=== PATIENT | male | born 1985 | race Caucasian/White ===

== ENCOUNTER 2025-02-11 05:12 | Inpatient (IN) | payer MEDICARE, OTHER, SELFPAY ==
[2025-02-11] VITALS (8 sets, daily range): BP systolic 97–111; BP diastolic 62–73
[2025-02-11] MEDS: DUONEB 3 ML INH ×2 (02:42→07:56)
[2025-02-11] MEDS: TYLENOL SUSPENSION 650 MG PO (02:43)
[2025-02-11] MEDS: NSS 1000 IV (02:43)
[2025-02-11 02:59] LABS: Hematocrit 47.5 % (39.0-52.0); Hemoglobin 16.6 g/dL (13.0-18.0); Mean Corp Hgb Conc. 34.9 g/dL (33.0-37.0); Mean Corpuscular Volume 91.5 fL (80.0-94.0); Mean Platelet Volume 12.2 fL (7.4-10.4); Platelet Count 220 10^3/uL (130-400); Red Blood Cell Count 5.19 10^6/uL (4.70-6.10); Red Cell Dist. Width 12.5 % (11.5-14.5); White Blood Cell Count 28.9 10^3/uL (4.8-10.8)
[2025-02-11 03:11] LABS: Lactic Acid 1.5 mmol/L (0.7-2.0)
[2025-02-11 03:13] LABS: Blood Urea Nitrogen 16 mg/dl (9-20); Calcium 9.2 mg/dl (8.4-10.2); Carbon Dioxide 21 mmol/L (22-30); Chloride 107 mmol/L (98-107); Glucose 137 mg/dl (70-99); Sodium 138 mmol/L (135-145); eGFR > 60.00
[2025-02-11 03:40] LABS: Absolute Neutrophils -Man Diff 27.1 10^3/uL (1.4-6.5); Band Neutrophils 10 % (0-3); Lymphocytes 3 % (20-51); Monocytes 3 % (2-9); Normal RBC Morphology Yes; Platelets Checked Yes; Segmented Neutrophils 84 % (42-75); Total Cells Counted 100
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
[2025-02-11] MEDS: ROCEPHIN 2000 MG IV (04:27)
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
[2025-02-11] MEDS: ZITHROMAX INFUSION 250 IV (04:33)
[2025-02-11 05:12] LABS: COVID-19 Antigen Negative (Negative)
--- NOTE | 2025-02-11 05:45 | PTCARENOTE ---
Pt arrived to unit from ED, pullover assist x4 from stretcher to bed. Pt is non-verbal; mother at bedside to help answer admission questions. Call rg in reach, bed alarm in place. Plan of care reviewed with mother. VSS. Bed in lowest
position. Pt suctioned for a small amount of clear thick secretions. HOB elevated above 30 degrees.
[2025-02-11 06:45] LABS: Lactic Acid 2.3 mmol/L (0.7-2.0)
[2025-02-11] MEDS: LR 1000 IV (07:40)
[2025-02-11] MEDS: COLACE 100 MG PO ×2 (09:36→20:23)
[2025-02-11] MEDS: MUCINEX 600 MG PO ×2 (09:36→20:24)
[2025-02-11] MEDS: PROTONIX 40 MG PO (09:36)
[2025-02-11] MEDS: KEPPRA 500 MG PO ×2 (09:36→20:28)
[2025-02-11] MEDS: VIMPAT 200 MG PO ×2 (09:38→20:24)
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
--- NOTE | 2025-02-11 16:00 | CM ---
senior manager mergers [employer] acquisitions reviewed patient's chart and patient was admitted from home where he lives with his mother, patient with paraplegia and his home is fully functioning for his needs per patient's sister who was at bedside, patient has an electric w/c, 1
story, no steps and a ramp to enter. Patient is , and follows with Dr. Polk at [facility]. Patient has private caregivers. Plan home with mother when stable.
PCP: Dr Polk at [facility]
PHarmacy: [facility] In [place]
Plan; Home with mother when stable.
--- NOTE | 2025-02-11 16:35 | PTOTSP ---
Dysphagia Evaluation
Patient presents with signs concerning for at least mild-moderate oral dysphagia likely related to acute PNA and baseline factors (TBI, spinal cord injury, paraplegia). Cannot r/o pharyngeal dysphagia or aspiration bedside. Instrumental swallowing
assessment recommended. Family declined. Family in agreement to diet modifications below.
Recommend:
1. IDDSI Level 6 Soft/Bite Sized, Thin Liquids
2. Medications: crushed in puree
3. Strategies: FULL supervision/assistance, single sips/bites, slow rate, alternate sips/bites, check for pocketing, reflux precautions, oral care post meals and 3x daily
4. Dysphagia f/u to determine if/when diet advancement appropriate and continue education.
[2025-02-11] MEDS: LOVENOX 40 MG SC (17:12)
[2025-02-11] MEDS: CRESTOR 20 MG PO (17:14)
[2025-02-11] MEDS: DESYREL 100 MG PO (22:35)
[2025-02-12] MEDS: FLUSH (NSS) 1 FLUSH IV (05:18)
[2025-02-12] MEDS: ZITHROMAX INFUSION 250 IV (05:18)
[2025-02-12] MEDS: STERILE WATER FOR INJECTION 20 ML IV (05:23)
[2025-02-12] MEDS: ROCEPHIN 2000 MG IV (05:23)
[2025-02-12 07:08] LABS: Hematocrit 43.8 % (39.0-52.0); Hemoglobin 14.7 g/dL (13.0-18.0); Mean Corp Hgb Conc. 33.6 g/dL (33.0-37.0); Mean Corpuscular Hgb 31.1 pg (27.0-31.0); Mean Corpuscular Volume 92.8 fL (80.0-94.0); Mean Platelet Volume 12.3 fL (7.4-10.4); Platelet Count 212 10^3/uL (130-400); Red Blood Cell Count 4.72 10^6/uL (4.70-6.10); White Blood Cell Count 16.3 10^3/uL (4.8-10.8)
[2025-02-12 07:13] VITALS: BP 100/59
[2025-02-12 07:28] LABS: Blood Urea Nitrogen 13 mg/dl (9-20); Calcium 8.7 mg/dl (8.4-10.2); Carbon Dioxide 23 mmol/L (22-30); Chloride 111 mmol/L (98-107); Glucose 95 mg/dl (70-99); Potassium 4.3 mmol/L (3.5-5.1); Sodium 143 mmol/L (135-145); eGFR > 60.00
[2025-02-12] MEDS: MUCINEX 600 MG PO (09:39)
[2025-02-12] MEDS: KEPPRA 500 MG PO (09:39)
[2025-02-12] MEDS: VIMPAT 200 MG PO (09:39)
[2025-02-12] MEDS: PROTONIX 40 MG PO (09:39)
[2025-02-12] MEDS: COLACE PO (09:47)
[2025-02-12] MEDS: DUONEB 3 ML INH (09:56)
--- NOTE | 2025-02-12 12:17 | W.DS.TRANS ---
DC Summary - [employer]
-
Discharge Instructions:
Discharge Diagnosis/Procedures Aspiration pneumonia
Diet Other diet
Additional Diets soft, bite sized diet
Activity As tolerated
Driving Restrictions No driving
Bathing Restrictions None
Instructions:
Stand-Alone Forms:
Changes to Home Medications: No
Discharge Medications:
DC Medications w/original date entered in [employer]
glycerin (laxative) 5.4 gram/5.4 mL rectal solution (Fleet Glycerin Laxative) g ME Gastrointestinal Issue 02/11/25
lacosamide 200 mg tablet (Vimpat) 200 mg PO BID Neurological Condition 02/11/25
levetiracetam 500 mg tablet (Keppra) 500 mg PO BID Neurological Condition 02/11/25
omeprazole 40 mg capsule,delayed release 40 mg PO DAILY Gastrointestinal Issue 02/11/25
rosuvastatin 40 mg tablet 20 mg PO DAILY High Cholesterol 02/11/25
sennosides 8.6 mg tablet (senna) 8.6 mg PO BID Gastrointestinal Issue 02/11/25
trazodone 100 mg tablet 100 mg PO HS Sleep 02/11/25
amoxicillin 250 mg/5 mL oral suspension 1,000 mg (20 mL) PO TID #240 mL 02/12/25
Home Medication Changes
Pending Results: No
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
== END 2025-02-12 13:50 | disposition home or self-care (01) | DRG 871 ==
LOC: 4 WEST ACU 05:12
PROVIDERS: Physician Assistant; ADMITTING PHYSICIAN Internal Medicine; ATTENDING PHYSICIAN Hospitalist; EMERGENCY PHYSICIAN Student in an Organized Health Care Education/Training Program
DX: A41.9 Sepsis, unspecified organism (principal); J69.0 Pneumonitis due to inhalation of food and vomit; G82.20 Paraplegia, unspecified; Z87.891 Personal history of nicotine dependence; G40.909 Epilepsy, unspecified, not intractable, without status epilepticus; Z11.52 Encounter for screening for COVID-19; Z86.73 Personal history of transient ischemic attack (TIA), and cerebral infarction without residual deficits; M06.9 Rheumatoid arthritis, unspecified; Z79.899 Other long term (current) drug therapy
CPT/HCPCS: 71046; 71260; 80048; 83605; 85025; 85027; 87040; 87070; 87449; 87502; 87811; 87899; 92610; 93005; 94640; 96361; 96365; 96375; 99285; Q9967

== ENCOUNTER 2025-07-13 20:50 | Emergency (ER) | payer MEDICARE, OTHER, SELFPAY ==
[2025-07-13 21:00] VITALS: BP 133/92
[2025-07-13 22:44] VITALS: BP 106/76
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
[2025-07-14 00:01] LABS: Hematocrit 48.9 % (39.0-52.0); Hemoglobin 16.5 g/dL (13.0-18.0); Mean Corp Hgb Conc. 33.7 g/dL (33.0-37.0); Mean Corpuscular Volume 92.8 fL (80.0-94.0); Platelet Count 208 10^3/uL (130-400); Red Cell Dist. Width 12.6 % (11.5-14.5)
[2025-07-14] MEDS: TYLENOL SUSPENSION 650 MG PO (00:07)
[2025-07-14] MEDS: NSS 1000 IV (00:09)
[2025-07-14 00:14] LABS: AST (SGOT) 22 U/L (17-59); Albumin 4.3 g/dl (3.5-5.0); Alkaline Phosphatase 78 U/L (38-126); Blood Urea Nitrogen 15 mg/dl (9-20); Carbon Dioxide 25 mmol/L (22-30); Chloride 101 mmol/L (98-107); Glucose 96 mg/dl (70-99); Sodium 131 mmol/L (135-145); Total Protein 7.2 g/dl (6.3-8.2); eGFR > 60.00
[2025-07-14 00:15] VITALS: BP 112/80; BMI 26.7
[2025-07-14 00:28] LABS: ALT (SGPT) 29 U/L (0-50); Calcium 9.1 mg/dl (8.4-10.2); Potassium 4.0 mmol/L (3.5-5.1)
[2025-07-14 00:42] LABS: COVID-19 Antigen Negative (Negative)
[2025-07-14 01:28] VITALS: BP 93/58
[2025-07-14 01:30] LABS: Absolute Neutrophils -Man Diff 13.2 10^3/uL (1.4-6.5)
[2025-07-14 01:31] LABS: Normal RBC Morphology Yes; Platelets Checked Yes; Total Cells Counted 100
[2025-07-14 02:00] VITALS: BP 105/77
[2025-07-14] MEDS: AUGMENTIN 875 MG/125 MG 1 TABLET PO (02:23)
== END 2025-07-14 02:50 | disposition home or self-care (01) ==
LOC: EMR 20:50
PROVIDERS: Physician Assistant; EMERGENCY PHYSICIAN Emergency Medicine; FAMILY PHYSICIAN Family Medicine
DX: J18.9 Pneumonia, unspecified organism (principal); G82.20 Paraplegia, unspecified; Z87.01 Personal history of pneumonia (recurrent); Z87.820 Personal history of traumatic brain injury; Z99.3 Dependence on wheelchair
CPT/HCPCS: 99284; 96360; 71046; 71250; 80053; 83605; 85025; 87040; 87502; 87811